=== PATIENT | female | born 1995 | race Caucasian/White ===

== ENCOUNTER 2019-09-03 21:51 | Emergency (ER) | payer OTHER, MEDICAID ==
[~2019-09-03] VITALS: Ht 162.6 cm; Wt 97.5 kg
[~2019-09-03 21:51] MED LIST: ESCI5TAB; RISP1TAB27
--- NOTE | 2019-09-03 22:30 | NUR ---
Patient triaged and placed in waiting room. VSS and patient appears in no acute distress at this time. Accompanied by SELF, awaiting available bed, and MD notified of need for MSE.
[2019-09-03 22:33] VITALS: BP_SYST 112
--- NOTE | 2019-09-04 01:33 | NUR ---
Patient to ER bed 3 to gown for evaluation. Side rails up. Report given to ALEJANDRO HAWKINS.
--- NOTE | 2019-09-04 01:59 | NUR ---
Dr. Ventura bedside for Pt eval
--- NOTE | 2019-09-04 02:05 | NUR ---
Pt BIB family to ED C/O sudden onset, constant dizziness and nausea since 1700 yesterday worse with postural changes, and alleviated upon staying still. She also reports of a 2 day history of left earache. Denies any fevers, chills, cough, other flu-like symptoms, chest pain, shortness of breath, vomiting, motor weakness, trouble speaking, trouble with gait. No known ill contacts or recent travel
[2019-09-04 02:20] LABS: BILIRUBIN,URINE NEGATIVE (NEGATIVE); BLOOD, URINE 3+ (NEGATIVE); CLARITY/URINE CLEAR (CLEAR); COLOR,URINE YELLOW (YELLOW); GLUCOSE,URINE NEGATIVE (NEGATIVE); KETONES,URINE NEGATIVE (NEGATIVE); LEUKOCYTE ESTERASE ,URINE 1+ (NEGATIVE); NITRITE, URINE NEGATIVE (NEGATIVE); PH,URINE 5.5 (5.0-8.0); PROTEIN URINE TRACE (NEGATIVE); UROBILINOGEN,URINE 0.2 (0.2-1.0)
[2019-09-04 02:26] LABS: BACTERIA,URINE FEW /HPF (None Seen); RBC,URINE 80-100 /HPF (0-3)
[2019-09-04 02:39] LABS: BASOPHILS % (AUTO) 0.3 % (0.0-2.0); EOSINOPHILS # (AUTO) 0.2 K/uL (0.0-0.4); EOSINOPHILS % (AUTO) 2.3 % (0.0-4.0); HEMATOCRIT 30.3 % (36-48); HEMOGLOBIN 9.8 g/dL (12.0-16.0); LYMPHOCYTES # (AUTO) 3.6 K/uL (1.0-5.5); LYMPHOCYTES % (AUTO) 46.9 % (20.5-51.5); MEAN CORPUSCULAR HEMOGLOBIN 24 pg (27-31); MEAN CORPUSCULAR HGB CONC 32 % (32-36); MEAN CORPUSCULAR VOLUME 74 fL (79.0-98.0); MONOCYTES # (AUTO) 0.5 K/uL (0.0-1.0); MONOCYTES % (AUTO) 6.4 % (1.7-9.3); NEUTROPHILS # (AUTO) 3.4 K/uL (1.8-7.7); NEUTROPHILS % (AUTO) 44.1 % (40.0-70.0); PLATELET COUNT (AUTO) 302 K/uL (130-430); RED BLOOD CELL COUNT(AUTO) 4.09 MIL/uL (4.2-6.2); RED CELL DISTRIBUTION WIDTH 17.7 % (9.0-15.0); WHITE BLOOD COUNT (AUTO) 7.6 K/uL (4.8-10.8)
[2019-09-04 02:42] LABS: CALCIUM 8.2 mg/dL (8.4-11.0); CREATININE 0.76 mg/dL (0.55-1.30); POTASSIUM 3.3 mmol/L (3.5-5.1)
[2019-09-04 03:00] LABS: ALBUMIN 3.6 g/dL (3.4-4.8); TOTAL BILIRUBIN 0.1 mg/dL (0.0-1.0)
--- NOTE | 2019-09-04 03:12 | NUR ---
VSS no s/s of acute distress Resting on gurney rails up
[2019-09-04] MEDS ORDERED: POTASSIUM CHLORIDE 20 MEQ TAB.PRT.SR PO ONE (04:00)
[2019-09-04 04:15] VITALS: BP_SYST 112
--- NOTE | 2019-09-04 04:15 | NUR ---
Patient given written and verbal discharge instructions and verbalizes understanding. ER MD discussed with patient the results and treatment provided. Patient in stable condition. ID arm band removed. Rx of Ofloxacin and Macrobid given. Patient educated on pain management and to follow up with PMD. Pain Scale 0/10 Opportunity for questions provided and answered. Medication side effect fact sheet provided.
== END 2019-09-04 04:15 | disposition home or self-care (01) ==
LOC: SED 21:51
DX: N39.0 Urinary tract infection, site not specified (principal); H60.92 Unspecified otitis externa, left ear; D64.9 Anemia, unspecified; E87.6 Hypokalemia; E11.9 Type 2 diabetes mellitus without complications; F41.9 Anxiety disorder, unspecified; E78.00 Pure hypercholesterolemia, unspecified
CPT/HCPCS: 36415; 80053; 81000-TC; 84702-TC; 85025; 87086; 99283

== ENCOUNTER 2020-05-03 20:16 | Inpatient (IN) | payer OTHER, MEDICAID, SELFPAY ==
[~2020-05-03] VITALS: Ht 162.6 cm; Wt 99.3 kg
[2020-05-03 20:16] VITALS: BP_SYST 119
[~2020-05-03 20:16] MED LIST changes: -ESCI5TAB; +ESCI5TAB PO; -RISP1TAB27; +RISP1TAB27 PO
[2020-05-03] MEDS ORDERED: NACL 0.9% 1,000 ML IV ONE ×2 (21:15→22:15)
[2020-05-03 21:27] LABS: BASOPHILS % (AUTO) 0.4 % (0.0-2.0); EOSINOPHILS % (AUTO) 0.6 % (0.0-4.0); HEMATOCRIT 30.7 % (36-48); LYMPHOCYTES # (AUTO) 2.7 K/uL (1.0-5.5); MEAN CORPUSCULAR HEMOGLOBIN 25 pg (27-31); MEAN CORPUSCULAR HGB CONC 33 % (32-36); MEAN CORPUSCULAR VOLUME 76 fL (79.0-98.0); MONOCYTES # (AUTO) 0.7 K/uL (0.0-1.0); NEUTROPHILS # (AUTO) 4.6 K/uL (1.8-7.7); PLATELET COUNT (AUTO) 261 K/uL (130-430); RED BLOOD CELL COUNT(AUTO) 4.07 MIL/uL (4.2-6.2); RED CELL DISTRIBUTION WIDTH 15.6 % (9.0-15.0); WHITE BLOOD COUNT (AUTO) 8.2 K/uL (4.8-10.8)
[2020-05-03 21:50] LABS: CALCIUM 8.3 mg/dL (8.4-11.0); CREATININE 0.78 mg/dL (0.55-1.30)
[2020-05-03 21:51] LABS: ALBUMIN 3.8 g/dL (3.4-4.8); TOTAL BILIRUBIN 0.1 mg/dL (0.0-1.0)
[2020-05-03 22:24] LABS: BILIRUBIN,URINE NEGATIVE (NEGATIVE); BLOOD, URINE NEGATIVE (NEGATIVE); CLARITY/URINE CLEAR (CLEAR); COLOR,URINE YELLOW (YELLOW); GLUCOSE,URINE 3+ (NEGATIVE); KETONES,URINE TRACE (NEGATIVE); LEUKOCYTE ESTERASE ,URINE NEGATIVE (NEGATIVE); NITRITE, URINE NEGATIVE (NEGATIVE); PH,URINE 7.5 (5.0-8.0); PROTEIN URINE NEGATIVE (NEGATIVE); UROBILINOGEN,URINE 0.2 (0.2-1.0)
[2020-05-03 22:31] LABS: BILIRUBIN,DIRECT 0.1 mg/dL (0.0-0.3)
[2020-05-03 23:00] LABS: BACTERIA,URINE RARE /HPF (None Seen); RBC,URINE NONE SEEN /HPF (0-3); WBC,URINE 0-3 /HPF (0-3)
[2020-05-03 23:01] LABS: MUCUS,URINE None Seen /LPF (None Seen)
[2020-05-04] MEDS ORDERED: PANTOPRAZOLE SODIUM 40 MG/VIAL (PROTONIX) IVP ONE (04:45)
[2020-05-04 08:30] VITALS: BP_SYST 118
[2020-05-04] MEDS ORDERED: ACETAMINOPHEN 325 MG TABLET PO PRN (08:45)
[2020-05-04] MEDS ORDERED: LORazepam 2 MG/ML VIAL IVP PRN (08:45)
[2020-05-04] MEDS ORDERED: HYDROcodone/ACETAMIN 10-325 MG TAB PO PRN (08:45)
[2020-05-04] MEDS ORDERED: ONDANSETRON HCL 4 MG/2 ML VIAL IVP PRN (08:45)
[2020-05-04] MEDS ORDERED: NALOXONE HCL 0.4 MG/ML AMP (NARCAN) IVP PRN (08:45)
[2020-05-04] MEDS ORDERED: PIOGLITAZONE HCL 30 MG TABLET PO SCH (09:00)
[2020-05-04] MEDS: PIOGLITAZONE HCL 15 MG TABLET PO SCH (09:47)
[2020-05-04] MEDS: CITALOPRAM HYDROBROMIDE 20 MG TABLET PO SCH (09:47)
[2020-05-04] MEDS: risperiDONE 1 MG TABLET (RisperDAL) PO SCH (09:47)
[2020-05-04 10:30] VITALS: BP_SYST 118
[2020-05-04] MEDS: NORMAL SALINE 5 ML DISP.SYRIN IVF SCH ×2 (11:17→20:52)
[2020-05-04] MEDS: INSULIN REGULAR, HUMAN 100 UNITS/ML, 10 ML VIAL (humuLIN R) SUBCUT PRN ×2 (11:18→17:51)
[2020-05-04 12:00] VITALS: BP_SYST 106
[2020-05-04] MEDS ORDERED: NORMAL SALINE 5 ML DISP.SYRIN IVF SCH (14:00)
[2020-05-04 16:54] VITALS: BP_SYST 97
[2020-05-04] MEDS: metFORMIN HCL 500 MG TABLET PO SCH (17:51)
[2020-05-04 20:00] VITALS: BP_SYST 131
[2020-05-05 00:52] VITALS: BP_SYST 111
[2020-05-05] MEDS: NORMAL SALINE 5 ML DISP.SYRIN IVF SCH ×2 (05:48→22:03)
[2020-05-05] MEDS: INSULIN REGULAR, HUMAN 100 UNITS/ML, 10 ML VIAL (humuLIN R) SUBCUT PRN ×3 (07:29→22:02)
[2020-05-05 07:49] LABS: BASOPHILS % (AUTO) 0.5 % (0.0-2.0); EOSINOPHILS # (AUTO) 0.1 K/uL (0.0-0.4); HEMATOCRIT 30.8 % (36-48); HEMOGLOBIN 10.1 g/dL (12.0-16.0); LYMPHOCYTES # (AUTO) 3.5 K/uL (1.0-5.5); LYMPHOCYTES % (AUTO) 40.7 % (20.5-51.5); MEAN CORPUSCULAR HEMOGLOBIN 25 pg (27-31); MEAN CORPUSCULAR HGB CONC 33 % (32-36); MEAN CORPUSCULAR VOLUME 75 fL (79.0-98.0); MONOCYTES # (AUTO) 0.6 K/uL (0.0-1.0); MONOCYTES % (AUTO) 6.9 % (1.7-9.3); NEUTROPHILS # (AUTO) 4.4 K/uL (1.8-7.7); NEUTROPHILS % (AUTO) 50.9 % (40.0-70.0); PLATELET COUNT (AUTO) 255 K/uL (130-430); RED BLOOD CELL COUNT(AUTO) 4.12 MIL/uL (4.2-6.2); RED CELL DISTRIBUTION WIDTH 15.9 % (9.0-15.0); WHITE BLOOD COUNT (AUTO) 8.6 K/uL (4.8-10.8)
[2020-05-05] MEDS ORDERED: GLU500 PO (08:04)
[2020-05-05] MEDS ORDERED: PIOG15TA8 PO (08:04)
[2020-05-05] MEDS ORDERED: ASPI-1393 PO (08:04)
[2020-05-05 08:07] LABS: ALBUMIN 3.4 g/dL (3.4-4.8); CALCIUM 8.2 mg/dL (8.4-11.0); CREATININE 0.79 mg/dL (0.55-1.30); PHOSPHORUS 4.5 mg/dL (2.7-4.5); POTASSIUM 3.8 mmol/L (3.5-5.1); TOTAL BILIRUBIN 0.3 mg/dL (0.0-1.0)
[2020-05-05 08:37] VITALS: BP_SYST 115
[2020-05-05] MEDS: metFORMIN HCL 500 MG TABLET PO SCH ×2 (08:58→16:57)
[2020-05-05] MEDS: PIOGLITAZONE HCL 15 MG TABLET PO SCH (08:58)
[2020-05-05] MEDS: risperiDONE 1 MG TABLET (RisperDAL) PO SCH (08:59)
[2020-05-05] MEDS: CITALOPRAM HYDROBROMIDE 20 MG TABLET PO SCH (08:59)
[2020-05-05 16:34] VITALS: BP_SYST 110
[2020-05-05 20:00] VITALS: BP_SYST 105
[2020-05-06] VITALS: BP_SYST 108
[2020-05-06 06:38] LABS: BASOPHILS # (AUTO) 0.1 K/uL (0.0-0.2); BASOPHILS % (AUTO) 0.6 % (0.0-2.0); EOSINOPHILS # (AUTO) 0.1 K/uL (0.0-0.4); EOSINOPHILS % (AUTO) 1.4 % (0.0-4.0); HEMATOCRIT 31.4 % (36-48); HEMOGLOBIN 10.4 g/dL (12.0-16.0); LYMPHOCYTES # (AUTO) 3.4 K/uL (1.0-5.5); LYMPHOCYTES % (AUTO) 38.4 % (20.5-51.5); MEAN CORPUSCULAR HEMOGLOBIN 25 pg (27-31); MEAN CORPUSCULAR HGB CONC 33 % (32-36); MEAN CORPUSCULAR VOLUME 75 fL (79.0-98.0); MONOCYTES # (AUTO) 0.7 K/uL (0.0-1.0); MONOCYTES % (AUTO) 7.4 % (1.7-9.3); NEUTROPHILS # (AUTO) 4.7 K/uL (1.8-7.7); NEUTROPHILS % (AUTO) 52.2 % (40.0-70.0); PLATELET COUNT (AUTO) 280 K/uL (130-430); RED BLOOD CELL COUNT(AUTO) 4.19 MIL/uL (4.2-6.2); RED CELL DISTRIBUTION WIDTH 15.6 % (9.0-15.0)
[2020-05-06] MEDS: NORMAL SALINE 5 ML DISP.SYRIN IVF SCH ×3 (06:50→21:14)
[2020-05-06] MEDS: INSULIN REGULAR, HUMAN 100 UNITS/ML, 10 ML VIAL (humuLIN R) SUBCUT PRN ×3 (06:52→18:09)
[2020-05-06 08:00] VITALS: BP_SYST 102
[2020-05-06] MEDS: metFORMIN HCL 500 MG TABLET PO SCH ×2 (08:20→18:05)
[2020-05-06] MEDS: PIOGLITAZONE HCL 15 MG TABLET PO SCH (08:21)
[2020-05-06] MEDS: risperiDONE 1 MG TABLET (RisperDAL) PO SCH (08:21)
[2020-05-06] MEDS: CITALOPRAM HYDROBROMIDE 20 MG TABLET PO SCH (08:21)
[2020-05-06 08:33] LABS: CALCIUM 8.3 mg/dL (8.4-11.0); CREATININE 0.99 mg/dL (0.55-1.30); POTASSIUM 3.4 mmol/L (3.5-5.1)
[2020-05-06] MEDS ORDERED: POTASSIUM CHLORIDE 20 MEQ TAB.PRT.SR PO ONE ×2 (12:15→14:30)
[2020-05-06 12:53] VITALS: BP_SYST 110
[2020-05-06 16:00] VITALS: BP_SYST 111
[2020-05-06] MEDS ORDERED: metFORMIN HCL 500 MG TABLET PO SCH (18:00)
[2020-05-06 20:00] VITALS: BP_SYST 122
[2020-05-07 00:08] VITALS: BP_SYST 117
[2020-05-07] MEDS: NORMAL SALINE 5 ML DISP.SYRIN IVF SCH ×3 (06:24→22:54)
[2020-05-07] MEDS: INSULIN REGULAR, HUMAN 100 UNITS/ML, 10 ML VIAL (humuLIN R) SUBCUT PRN ×2 (06:28→12:05)
[2020-05-07 07:15] LABS: BASOPHILS % (AUTO) 0.3 % (0.0-2.0); EOSINOPHILS # (AUTO) 0.1 K/uL (0.0-0.4); EOSINOPHILS % (AUTO) 1.5 % (0.0-4.0); HEMATOCRIT 31.7 % (36-48); HEMOGLOBIN 10.4 g/dL (12.0-16.0); LYMPHOCYTES # (AUTO) 3.4 K/uL (1.0-5.5); LYMPHOCYTES % (AUTO) 35.6 % (20.5-51.5); MEAN CORPUSCULAR HEMOGLOBIN 25 pg (27-31); MEAN CORPUSCULAR HGB CONC 33 % (32-36); MEAN CORPUSCULAR VOLUME 75 fL (79.0-98.0); MONOCYTES # (AUTO) 0.8 K/uL (0.0-1.0); MONOCYTES % (AUTO) 8.4 % (1.7-9.3); NEUTROPHILS # (AUTO) 5.3 K/uL (1.8-7.7); NEUTROPHILS % (AUTO) 54.2 % (40.0-70.0); PLATELET COUNT (AUTO) 281 K/uL (130-430); RED BLOOD CELL COUNT(AUTO) 4.22 MIL/uL (4.2-6.2); RED CELL DISTRIBUTION WIDTH 15.1 % (9.0-15.0); WHITE BLOOD COUNT (AUTO) 9.7 K/uL (4.8-10.8)
[2020-05-07 07:49] LABS: CALCIUM 8.8 mg/dL (8.4-11.0); CREATININE 0.69 mg/dL (0.55-1.30); POTASSIUM 3.6 mmol/L (3.5-5.1)
[2020-05-07 08:00] VITALS: BP_SYST 109
[2020-05-07] MEDS ORDERED: PIOGLITAZONE HCL 15 MG TABLET PO SCH (09:00)
[2020-05-07] MEDS: CITALOPRAM HYDROBROMIDE 20 MG TABLET PO SCH (09:30)
[2020-05-07] MEDS: PIOGLITAZONE HCL 15 MG TABLET PO SCH (09:30)
[2020-05-07] MEDS: metFORMIN HCL 500 MG TABLET PO SCH ×2 (09:31→17:09)
[2020-05-07] MEDS: ASPIRIN 81 MG TABLET(ECOTRIN) PO SCH (09:31)
[2020-05-07] MEDS: risperiDONE 1 MG TABLET (RisperDAL) PO SCH (09:31)
[2020-05-07 12:00] VITALS: BP_SYST 100
[2020-05-07 16:00] VITALS: BP_SYST 110
[2020-05-07 20:00] VITALS: BP_SYST 105
[2020-05-08] VITALS: BP_SYST 114
[2020-05-08] MEDS: INSULIN REGULAR, HUMAN 100 UNITS/ML, 10 ML VIAL (humuLIN R) SUBCUT PRN ×4 (00:23→23:47)
[2020-05-08 06:23] LABS: BASOPHILS % (AUTO) 0.5 % (0.0-2.0); EOSINOPHILS # (AUTO) 0.1 K/uL (0.0-0.4); EOSINOPHILS % (AUTO) 1.4 % (0.0-4.0); HEMATOCRIT 32.5 % (36-48); HEMOGLOBIN 10.8 g/dL (12.0-16.0); LYMPHOCYTES # (AUTO) 2.7 K/uL (1.0-5.5); LYMPHOCYTES % (AUTO) 37.8 % (20.5-51.5); MEAN CORPUSCULAR HEMOGLOBIN 25 pg (27-31); MEAN CORPUSCULAR HGB CONC 33 % (32-36); MEAN CORPUSCULAR VOLUME 75 fL (79.0-98.0); MONOCYTES # (AUTO) 0.7 K/uL (0.0-1.0); MONOCYTES % (AUTO) 9.5 % (1.7-9.3); NEUTROPHILS # (AUTO) 3.7 K/uL (1.8-7.7); NEUTROPHILS % (AUTO) 50.8 % (40.0-70.0); PLATELET COUNT (AUTO) 285 K/uL (130-430); RED BLOOD CELL COUNT(AUTO) 4.34 MIL/uL (4.2-6.2); RED CELL DISTRIBUTION WIDTH 15.5 % (9.0-15.0); WHITE BLOOD COUNT (AUTO) 7.2 K/uL (4.8-10.8)
[2020-05-08 07:03] LABS: ALBUMIN 3.9 g/dL (3.4-4.8); CREATININE 0.71 mg/dL (0.55-1.30); POTASSIUM 3.4 mmol/L (3.5-5.1); TOTAL BILIRUBIN 0.6 mg/dL (0.0-1.0)
[2020-05-08 08:00] VITALS: BP_SYST 113
[2020-05-08] MEDS: ASPIRIN 81 MG TABLET(ECOTRIN) PO SCH (09:57)
[2020-05-08] MEDS: PIOGLITAZONE HCL 15 MG TABLET PO SCH (09:57)
[2020-05-08] MEDS: CITALOPRAM HYDROBROMIDE 20 MG TABLET PO SCH (09:58)
[2020-05-08] MEDS: metFORMIN HCL 500 MG TABLET PO SCH ×2 (09:58→17:51)
[2020-05-08] MEDS: risperiDONE 1 MG TABLET (RisperDAL) PO SCH (09:58)
[2020-05-08] MEDS: NORMAL SALINE 5 ML DISP.SYRIN IVF SCH ×2 (14:00→20:59)
[2020-05-08 16:00] VITALS: BP_SYST 110
[2020-05-08 20:00] VITALS: BP_SYST 106
[2020-05-09] VITALS: BP_SYST 129
[2020-05-09 01:19] VITALS: BP_SYST 96
[2020-05-09] MEDS: NORMAL SALINE 5 ML DISP.SYRIN IVF SCH ×2 (06:03→14:00)
[2020-05-09] MEDS: INSULIN REGULAR, HUMAN 100 UNITS/ML, 10 ML VIAL (humuLIN R) SUBCUT PRN ×2 (06:09→11:52)
[2020-05-09 06:51] LABS: BASOPHILS % (AUTO) 0.6 % (0.0-2.0); EOSINOPHILS # (AUTO) 0.1 K/uL (0.0-0.4); EOSINOPHILS % (AUTO) 1.6 % (0.0-4.0); HEMATOCRIT 30.8 % (36-48); HEMOGLOBIN 10.2 g/dL (12.0-16.0); LYMPHOCYTES # (AUTO) 2.7 K/uL (1.0-5.5); LYMPHOCYTES % (AUTO) 39.8 % (20.5-51.5); MEAN CORPUSCULAR HEMOGLOBIN 25 pg (27-31); MEAN CORPUSCULAR HGB CONC 33 % (32-36); MEAN CORPUSCULAR VOLUME 75 fL (79.0-98.0); MONOCYTES # (AUTO) 0.7 K/uL (0.0-1.0); MONOCYTES % (AUTO) 9.5 % (1.7-9.3); NEUTROPHILS # (AUTO) 3.3 K/uL (1.8-7.7); NEUTROPHILS % (AUTO) 48.5 % (40.0-70.0); PLATELET COUNT (AUTO) 285 K/uL (130-430); RED BLOOD CELL COUNT(AUTO) 4.13 MIL/uL (4.2-6.2); RED CELL DISTRIBUTION WIDTH 15.8 % (9.0-15.0); WHITE BLOOD COUNT (AUTO) 6.9 K/uL (4.8-10.8)
[2020-05-09 07:40] LABS: CALCIUM 8.5 mg/dL (8.4-11.0); CREATININE 0.73 mg/dL (0.55-1.30); POTASSIUM 3.4 mmol/L (3.5-5.1)
[2020-05-09 08:00] VITALS: BP_SYST 119
[2020-05-09] MEDS: ASPIRIN 81 MG TABLET(ECOTRIN) PO SCH (08:32)
[2020-05-09] MEDS: risperiDONE 1 MG TABLET (RisperDAL) PO SCH (08:32)
[2020-05-09] MEDS: PIOGLITAZONE HCL 15 MG TABLET PO SCH (08:32)
[2020-05-09] MEDS: metFORMIN HCL 500 MG TABLET PO SCH (08:32)
[2020-05-09] MEDS: CITALOPRAM HYDROBROMIDE 20 MG TABLET PO SCH (08:33)
[2020-05-09 12:13] VITALS: BP_SYST 114
[2020-05-09 13:38] VITALS: BP_SYST 115
== END 2020-05-09 15:20 | disposition home or self-care (01) | DRG 74 ==
LOC: SED 20:16 → STU 05-04 00:59 → SMU 05-06 15:11
PROVIDERS: ADMIT Preventive Medicine Preventive Medicine/Occupational Environmental Medicine; ATTEND Preventive Medicine Preventive Medicine/Occupational Environmental Medicine
DX: G90.8 Other disorders of autonomic nervous system (principal); D64.9 Anemia, unspecified; E83.51 Hypocalcemia; F32.9 Major depressive disorder, single episode, unspecified; E87.6 Hypokalemia; E11.65 Type 2 diabetes mellitus with hyperglycemia; F41.9 Anxiety disorder, unspecified; E78.00 Pure hypercholesterolemia, unspecified; F79 Unspecified intellectual disabilities; Z20.822 Contact with and (suspected) exposure to COVID-19
CPT/HCPCS: 36415; 70450-TC; 70551; 76376; 80048; 80053; 80076; 81000-TC; 82962; 83735-TC; 84100-TC; 85025; 93306; 93880; 96361; 96374; 97110-GP; 97112-GP; 97116-GP; 97530-GP; 99285; C9113; G0378; J2060

== ENCOUNTER 2021-08-04 14:16 | Emergency (ER) | payer OTHER, MEDICAID ==
[~2021-08-04] VITALS: Ht 162.6 cm; Wt 108.9 kg
[~2021-08-04 14:16] MED LIST changes: +ASPI-1393 PO; +GLU500 PO; +PIOG15TA8 PO; -RISP1TAB27 PO; +RISP1TAB44 PO
--- NOTE | 2021-08-04 14:23 | NUR ---
Patient to ER bed 08 to gown for evaluation. Side rails up.
[2021-08-04 14:25] VITALS: BP_SYST 109
--- NOTE | 2021-08-04 14:30 | NUR ---
completed [facility] Breast Exam with Primary Nurse in room
--- NOTE | 2021-08-04 14:33 | NUR ---
ROSS Jaimes assumed cares of patient
--- NOTE | 2021-08-04 14:45 | NUR ---
Lab at bedside
--- NOTE | 2021-08-04 15:00 | NUR ---
MD at bedside discussing plan of care
[2021-08-04 15:03] LABS: BASOPHILS % (AUTO) 0.3 % (0.0-2.0); EOSINOPHILS # (AUTO) 0.1 K/uL (0.0-0.4); EOSINOPHILS % (AUTO) 0.9 % (0.0-4.0); HEMATOCRIT 28.3 % (36-48); HEMOGLOBIN 9.2 g/dL (12.0-16.0); LYMPHOCYTES # (AUTO) 1.2 K/uL (1.0-5.5); LYMPHOCYTES % (AUTO) 18.7 % (20.5-51.5); MEAN CORPUSCULAR HEMOGLOBIN 23 pg (27-31); MEAN CORPUSCULAR HGB CONC 33 % (32-36); MEAN CORPUSCULAR VOLUME 72 fL (79.0-98.0); MONOCYTES # (AUTO) 0.5 K/uL (0.0-1.0); MONOCYTES % (AUTO) 7.5 % (1.7-9.3); NEUTROPHILS # (AUTO) 4.8 K/uL (1.8-7.7); NEUTROPHILS % (AUTO) 72.6 % (40.0-70.0); PLATELET COUNT (AUTO) 292 K/uL (130-430); RED BLOOD CELL COUNT(AUTO) 3.95 MIL/uL (4.2-6.2); RED CELL DISTRIBUTION WIDTH 18.6 % (9.0-15.0); WHITE BLOOD COUNT (AUTO) 6.6 K/uL (4.8-10.8)
[2021-08-04 15:19] LABS: ALBUMIN 3.4 g/dL (3.4-4.8); C-REACTIVE PROTEIN QUANT 2.8 mg/dL (0-0.5); CALCIUM 8.3 mg/dL (8.4-11.0); CREATININE 0.77 mg/dL (0.55-1.30); POTASSIUM 3.6 mmol/L (3.5-5.1); TOTAL BILIRUBIN 0.3 mg/dL (0.0-1.0)
[2021-08-04] MEDS ORDERED: CLIN-22 PO (15:23)
[2021-08-04] MEDS ORDERED: HYDR-3917 PO (15:24)
--- NOTE | 2021-08-04 15:29 | NUR ---
Patient given written and verbal discharge instructions and verbalizes understanding. ER MD discussed with patient the results and treatment provided. Patient in stable condition. ID arm band removed. Rx of given. Patient educated on pain management and to follow up with PMD. Pain Scale 0/10 Opportunity for questions provided and answered. Medication side effect fact sheet provided.
[2021-08-04 15:30] VITALS: BP_SYST 114
== END 2021-08-04 15:29 | disposition home or self-care (01) ==
LOC: SED 14:16
DX: N61.0 Mastitis without abscess (principal); E11.9 Type 2 diabetes mellitus without complications; F41.9 Anxiety disorder, unspecified; E78.00 Pure hypercholesterolemia, unspecified; Z79.899 Other long term (current) drug therapy
CPT/HCPCS: 36415; 80053; 83605; 84703; 85025; 86140; 99283

== ENCOUNTER 2021-10-24 11:15 | Emergency (ER) | payer OTHER, MEDICAID ==
[~2021-10-24] VITALS: Ht 162.6 cm; Wt 99.8 kg
[~2021-10-24 11:15] MED LIST changes: +CLIN-22 PO; +HYDR-3917 PO
[2021-10-24 11:19] VITALS: BP_SYST 132
--- NOTE | 2021-10-24 11:22 | NUR ---
Patient to ER bed 04 to gown for evaluation. Side rails up.
[2021-10-24] MEDS ORDERED: ALPRAZolam 0.25 MG TABLET PO ONE (11:30)
--- NOTE | 2021-10-24 11:30 | NUR ---
Pt coming from home ambulatory with steady gait accompanied by mother. Pt is A&Ox4. pt c/o feeling left arm pain 5/10 non-radiating and is constant. Pt also c/o seeing illusions that started 2 days ago as well as arm pain. Pt states this has happened before in the past. NKA. Has hx of DM, depression, Anxiety, and Hyperlipidemia. VSS. Bed in lowest position.
--- NOTE | 2021-10-24 11:35 | NUR ---
EKG performed at by Nadya HAWKINS. Physician given copy of EKG for review.
--- NOTE | 2021-10-24 11:45 | NUR ---
urine completed and results were negative.
--- NOTE | 2021-10-24 11:50 | NUR ---
ER at bedside examining patient.
--- NOTE | 2021-10-24 11:58 | NUR ---
X-Ray being done at bedside.
[2021-10-24] MEDS ORDERED: ALPR0.5T PO (12:38)
[2021-10-24 12:46] VITALS: BP_SYST 128
--- NOTE | 2021-10-24 12:51 | NUR ---
Patient given written and verbal discharge instructions and verbalizes understanding. ER MD discussed with patient the results and treatment provided. Patient in stable condition. ID arm band removed. Patient educated on pain management and to follow up with PMD. Pain Scale 0/10. Opportunity for questions provided and answered. Medication side effect fact sheet provided.
== END 2021-10-24 12:51 | disposition home or self-care (01) ==
LOC: SED 11:15
DX: F41.9 Anxiety disorder, unspecified (principal); M79.602 Pain in left arm; E11.9 Type 2 diabetes mellitus without complications; Z79.899 Other long term (current) drug therapy
CPT/HCPCS: 71045; 81025; 93005; 99283

== ENCOUNTER 2021-10-29 01:03 | Emergency (ER) | payer OTHER, MEDICAID ==
[~2021-10-29] VITALS: Ht 162.6 cm; Wt 104.3 kg
[~2021-10-29 01:03] MED LIST changes: +ALPR0.5T PO
[2021-10-29 01:28] VITALS: BP_SYST 117
--- NOTE | 2021-10-29 01:43 | NUR ---
Patient brought in with mother complaining of left hand flopping after taking 0.5 mg of Xanax tonight. Mother also reports patient is seeing things. Mother reports that this is different than how she normally presents for anxiety. Patient has history of anxiety and depression as well as diabetes. Patient denies any pain at this time vital signs are stable. Patient awaiting bed placement MD notified.
[2021-10-29] MEDS ORDERED: LORazepam 1 MG TABLET PO ONE (04:00)
--- NOTE | 2021-10-29 04:00 | NUR ---
BORIS Verduzco at bedside examining patient.
--- NOTE | 2021-10-29 04:58 | NUR ---
Urine HCG done, results NEGATIVE
[2021-10-29] MEDS ORDERED: DIAZ5TAB PO (06:33)
[2021-10-29 06:50] VITALS: BP_SYST 121
--- NOTE | 2021-10-29 06:50 | NUR ---
Patient given written and verbal discharge instructions and verbalizes understanding. ER MD discussed with patient the results and treatment provided. Patient in stable condition. ID arm band removed. Rx of Diazepam given. Patient educated on pain management and to follow up with PMD. Pain Scale 0/10. Opportunity for questions provided and answered. Medication side effect fact sheet provided.
== END 2021-10-29 06:50 | disposition home or self-care (01) ==
LOC: SED 01:03
DX: F41.1 Generalized anxiety disorder (principal); E11.9 Type 2 diabetes mellitus without complications; F41.0 Panic disorder [episodic paroxysmal anxiety]; Z79.899 Other long term (current) drug therapy; R51.9 Headache, unspecified
CPT/HCPCS: 36415; 70450-TC; 76376; 81025; 84443; 99284

== ENCOUNTER 2021-11-23 16:59 | Emergency (ER) | payer OTHER, MEDICAID ==
[~2021-11-23] VITALS: Ht 162.6 cm; Wt 106.1 kg
[~2021-11-23 16:59] MED LIST changes: +DIAZ5TAB PO
[2021-11-23 17:19] VITALS: BP_SYST 103
[2021-11-23 23:52] LABS: BILIRUBIN,URINE NEGATIVE (NEGATIVE); CLARITY/URINE SL CLOUDY (CLEAR); COLOR,URINE YELLOW (YELLOW); GLUCOSE,URINE NEGATIVE (NEGATIVE); KETONES,URINE TRACE (NEGATIVE); LEUKOCYTE ESTERASE ,URINE NEGATIVE (NEGATIVE); NITRITE, URINE NEGATIVE (NEGATIVE); PH,URINE 5.5 (5.0-8.0); PROTEIN URINE NEGATIVE (NEGATIVE); UROBILINOGEN,URINE 0.2 (0.2-1.0)
[2021-11-24 00:02] LABS: BLOOD, URINE TRACE (NEGATIVE)
[2021-11-24 00:09] LABS: BASOPHILS % (AUTO) 0.6 % (0.0-2.0); EOSINOPHILS # (AUTO) 0.1 K/uL (0.0-0.4); HEMATOCRIT 30.9 % (36-48); HEMOGLOBIN 10.1 g/dL (12.0-16.0); MEAN CORPUSCULAR HEMOGLOBIN 24 pg (27-31); MEAN CORPUSCULAR HGB CONC 33 % (32-36); MEAN CORPUSCULAR VOLUME 72 fL (79.0-98.0); MONOCYTES # (AUTO) 0.4 K/uL (0.0-1.0); MONOCYTES % (AUTO) 7.3 % (1.7-9.3); NEUTROPHILS # (AUTO) 3.1 K/uL (1.8-7.7); NEUTROPHILS % (AUTO) 54.1 % (40.0-70.0); PLATELET COUNT (AUTO) 289 K/uL (130-430); RED BLOOD CELL COUNT(AUTO) 4.28 MIL/uL (4.2-6.2); RED CELL DISTRIBUTION WIDTH 16.7 % (9.0-15.0); WHITE BLOOD COUNT (AUTO) 5.7 K/uL (4.8-10.8)
[2021-11-24 00:12] LABS: CALCIUM 8.6 mg/dL (8.4-11.0); CREATININE 0.75 mg/dL (0.55-1.30); POTASSIUM 3.9 mmol/L (3.5-5.1)
[2021-11-24 00:17] LABS: ALBUMIN 3.4 g/dL (3.4-4.8); TOTAL BILIRUBIN 0.2 mg/dL (0.0-1.0)
[2021-11-24 01:33] LABS: BACTERIA,URINE FEW /HPF (None Seen)
[2021-11-24 01:34] LABS: MUCUS,URINE 1+ /LPF (None Seen)
[2021-11-24 03:42] VITALS: BP_SYST 106
== END 2021-11-24 03:43 | disposition home or self-care (01) ==
LOC: SED 16:59
DX: E11.65 Type 2 diabetes mellitus with hyperglycemia (principal); R73.9 Hyperglycemia, unspecified; E86.0 Dehydration; R42 Dizziness and giddiness; R53.1 Weakness; Z79.899 Other long term (current) drug therapy; Z20.822 Contact with and (suspected) exposure to COVID-19
CPT/HCPCS: 36415; 80053; 81000; 82962; 85025; 87086; 99283; 99285

== ENCOUNTER 2022-01-05 13:59 | Emergency (ER) | payer OTHER, MEDICAID ==
[~2022-01-05] VITALS: Ht 162.6 cm; Wt 104.3 kg
[2022-01-05 14:08] VITALS: BP_SYST 119
--- NOTE | 2022-01-05 14:15 | NUR ---
BIB B[facility]ET [facility] WITH C/C OF RIGHT LATERAL BREAST PAIN FROM PREVIOUS DX OF MASTITIS. PT FINISHED A FULL COURSE OF ANTIBIOTICS 2 WEEKS AGO. 3 WEEKS AGO PT HAD REDNESS AND SWELLING TO RIGHT BREAST AND GIVEN ANTIBIOTICS. TODAY PT WOKE UP WITH RIGHT BREAST PAIN. PT WITH MENTAL DISABILITY AND HAS 24 HOUR CAREGIVER. WITH CAREGIVER UCHE IN TRIAGE ROOM, RIGHT BREAST ASSESSSED WITH NO REDNESS OR SWELLING. PT DID HAVE SORENESS TO PALPATION OF RIGHT UPPER LATERAL BREAST. NO LUMPS OR HARNESS FELT. BASKET MAKER UCHE REPORTED LAST NIGHT PT WITH CHILLS, TYLENOL GIVEN AT 1999. AFEBRILE TODAY IN ED.
--- NOTE | 2022-01-05 14:47 | NUR ---
DR. SOLITARIO ASSESSED PT IN TRIAGE ROOM.
[2022-01-05 15:23] LABS: BASOPHILS % (AUTO) 0.5 % (0.0-2.0); EOSINOPHILS # (AUTO) 0.1 K/uL (0.0-0.4); EOSINOPHILS % (AUTO) 1.2 % (0.0-4.0); HEMATOCRIT 33.3 % (36-48); LYMPHOCYTES # (AUTO) 2.2 K/uL (1.0-5.5); LYMPHOCYTES % (AUTO) 30.3 % (20.5-51.5); MEAN CORPUSCULAR VOLUME 71 fL (79.0-98.0); MONOCYTES # (AUTO) 0.5 K/uL (0.0-1.0); MONOCYTES % (AUTO) 7.6 % (1.7-9.3); NEUTROPHILS # (AUTO) 4.3 K/uL (1.8-7.7); NEUTROPHILS % (AUTO) 60.4 % (40.0-70.0); PLATELET COUNT (AUTO) 287 K/uL (130-430); RED BLOOD CELL COUNT(AUTO) 4.66 MIL/uL (4.2-6.2); RED CELL DISTRIBUTION WIDTH 16.8 % (9.0-15.0); WHITE BLOOD COUNT (AUTO) 7.2 K/uL (4.8-10.8)
[2022-01-05 16:02] LABS: ANION GAP 8 (5-15); CALCIUM 9.4 mg/dL (8.4-11.0); CHLORIDE 100 mmol/L (98-107); CREATININE 0.82 mg/dL (0.55-1.30); GLUCOSE 287 mg/dL (70-99); POTASSIUM 4.4 mmol/L (3.5-5.1); SODIUM SERUM 135 mmol/L (136-145); UREA NITROGEN, BLOOD 7 mg/dL (8-21)
[2022-01-05 16:08] LABS: ALANINE AMINOTRANSFERASE 30 U/L (12-78); ALBUMIN 3.9 g/dL (3.4-4.8); ASPARTATE AMINOTRANSFERASE 18 U/L (10-37); TOTAL BILIRUBIN 0.6 mg/dL (0.0-1.0)
[2022-01-05 16:16] LABS: C-REACTIVE PROTEIN QUANT < 0.2 mg/dL (0-0.5); GFR AFRICAN AMERICAN 107 mL/min (>90)
[2022-01-05] MEDS ORDERED: IBUP-1969 PO (16:43)
--- NOTE | 2022-01-05 17:36 | NUR ---
PT CLEARED FOR DC BY DR. SOLITARIO. NAD NOTED. DENIES ANY PAIN AT THIS TIME. PT TO FOLLOW UP WITH HER PMD ON FRIDAY. PT ALREADY HAS AN APPOINTMENT. PT AMBULATED OUT OF ED IN STABLE CONDITION.
== END 2022-01-05 17:36 | disposition home or self-care (01) ==
LOC: SED 13:59
DX: R68.83 Chills (without fever) (principal); N64.4 Mastodynia; E11.9 Type 2 diabetes mellitus without complications; Z79.899 Other long term (current) drug therapy
CPT/HCPCS: 36415; 71045; 80053; 83605; 85025; 86140; 99284

== ENCOUNTER 2022-02-02 19:56 | Emergency (ER) | payer OTHER, MEDICAID ==
[~2022-02-02] VITALS: Ht 162.6 cm; Wt 104.3 kg
[~2022-02-02 19:56] MED LIST changes: +IBUP-1969 PO
[2022-02-02 20:17] VITALS: BP_SYST 132
--- NOTE | 2022-02-02 20:25 | NUR ---
Pt brought by mother, A&Ox4, pt presents to ER with abdominal pain, N/V/D x 3 days, per mother pt has Hx of diabetes, BS 257 at this time, skin pink and warm, cap refill <3, VSS, respirations even and unlabored, will cont to monitor.
[2022-02-02 21:45] LABS: BILIRUBIN,URINE 1+ (NEGATIVE); BLOOD, URINE NEGATIVE (NEGATIVE); CLARITY/URINE CLEAR (CLEAR); COLOR,URINE YELLOW (YELLOW); GLUCOSE,URINE 2+ (NEGATIVE); KETONES,URINE 1+ (NEGATIVE); LEUKOCYTE ESTERASE ,URINE NEGATIVE (NEGATIVE); NITRITE, URINE NEGATIVE (NEGATIVE); PROTEIN URINE TRACE (NEGATIVE); UROBILINOGEN,URINE 0.2 (0.2-1.0)
[2022-02-02 21:59] LABS: BACTERIA,URINE None Seen /HPF (None Seen); MUCUS,URINE 2+ /LPF (None Seen); RBC,URINE NONE SEEN /HPF (0-3); WBC,URINE NONE SEEN /HPF (0-3)
--- NOTE | 2022-02-02 22:27 | NUR ---
Patient to ER bed 03 to gown for evaluation. Side rails up. Report given to Laura HAWKINS.
[2022-02-02 22:46] LABS: BASOPHILS % (AUTO) 0.4 % (0.0-2.0); EOSINOPHILS # (AUTO) 0.1 K/uL (0.0-0.4); EOSINOPHILS % (AUTO) 1.6 % (0.0-4.0); HEMATOCRIT 33.7 % (36-48); LYMPHOCYTES # (AUTO) 2.5 K/uL (1.0-5.5); LYMPHOCYTES % (AUTO) 32.9 % (20.5-51.5); MEAN CORPUSCULAR HEMOGLOBIN 23 pg (27-31); MEAN CORPUSCULAR HGB CONC 33 % (32-36); MEAN CORPUSCULAR VOLUME 72 fL (79.0-98.0); MONOCYTES # (AUTO) 0.5 K/uL (0.0-1.0); MONOCYTES % (AUTO) 6.8 % (1.7-9.3); NEUTROPHILS # (AUTO) 4.4 K/uL (1.8-7.7); NEUTROPHILS % (AUTO) 58.3 % (40.0-70.0); PLATELET COUNT (AUTO) 294 K/uL (130-430); RED CELL DISTRIBUTION WIDTH 16.4 % (9.0-15.0); WHITE BLOOD COUNT (AUTO) 7.6 K/uL (4.8-10.8)
[2022-02-02] MEDS ORDERED: LORazepam 2 MG/ML VIAL IVP ONE (23:00)
[2022-02-02 23:28] LABS: CREATININE 0.91 mg/dL (0.55-1.30); POTASSIUM 3.8 mmol/L (3.5-5.1)
[2022-02-02 23:35] LABS: TOTAL BILIRUBIN 0.2 mg/dL (0.0-1.0)
[2022-02-03] MEDS ORDERED: ONDANSETRON HCL 4 MG/2 ML VIAL IVP ONE
[2022-02-03] MEDS ORDERED: NACL 0.9% 1,000 ML IV ONE
[2022-02-03] MEDS ORDERED: ONDA-8 TL (00:56)
--- NOTE | 2022-02-03 01:10 | NUR ---
NS 1L started at 0010hrs and ended at 0110 hrs
[2022-02-03 03:25] VITALS: BP_SYST 106
== END 2022-02-03 02:10 | disposition home or self-care (01) ==
LOC: SED 19:56
DX: R10.9 Unspecified abdominal pain (principal); R19.7 Diarrhea, unspecified; R11.0 Nausea; E11.9 Type 2 diabetes mellitus without complications; Z79.899 Other long term (current) drug therapy
CPT/HCPCS: 99284; 96374; 80053; 81000; 83690; 85025; 36415; 81025; 96361; 96375; J2060; J2405; J7030

== ENCOUNTER → 2023-04-13 | Emergency (ER) | payer OTHER, MEDICAID ==
[~2023-04-13] VITALS: Ht 165.1 cm; Wt 90.7 kg
[~2023-04-13] MED LIST changes: +FERR-69 PO; +NITR-85 PO; +ONDA-8 TL
[2023-04-13 18:13] VITALS: BP_SYST 127; PULSE 96; RESP 19; TEMP 97.4; O2SAT 98
[2023-04-13 19:07] LABS: BILIRUBIN,URINE NEGATIVE (NEGATIVE); BLOOD, URINE 3+ (NEGATIVE); COLOR,URINE YELLOW (YELLOW); GLUCOSE,URINE NEGATIVE (NEGATIVE); KETONES,URINE TRACE (NEGATIVE); LEUKOCYTE ESTERASE ,URINE NEGATIVE (NEGATIVE); NITRITE, URINE NEGATIVE (NEGATIVE); PROTEIN URINE TRACE (NEGATIVE)
[2023-04-13 19:28] LABS: CLARITY/URINE HAZY (CLEAR)
[2023-04-13 19:29] LABS: BACTERIA,URINE FEW /HPF (None Seen); RBC,URINE 50-80 /HPF (0-3)
[2023-04-13 19:30] LABS: CALCIUM OXALATE CRYSTALS,UR 0-10 /HPF (None Seen); MUCUS,URINE 2+ /LPF (None Seen)
[2023-04-13 21:35] LABS: BASOPHILS % (AUTO) 0.6 % (0.0-2.0); EOSINOPHILS # (AUTO) 0.2 K/uL (0.0-0.4); EOSINOPHILS % (AUTO) 2.7 % (0.0-4.0); HEMATOCRIT 37.2 % (36-48); HEMOGLOBIN 11.8 g/dL (12.0-16.0); LYMPHOCYTES # (AUTO) 2.3 K/uL (1.0-5.5); LYMPHOCYTES % (AUTO) 40.9 % (20.5-51.5); MEAN CORPUSCULAR HEMOGLOBIN 28 pg (27-31); MEAN CORPUSCULAR HGB CONC 32 % (32-36); MEAN CORPUSCULAR VOLUME 89 fL (79.0-98.0); MONOCYTES # (AUTO) 0.4 K/uL (0.0-1.0); MONOCYTES % (AUTO) 6.6 % (1.7-9.3); NEUTROPHILS # (AUTO) 2.8 K/uL (1.8-7.7); NEUTROPHILS % (AUTO) 49.2 % (40.0-70.0); PLATELET COUNT (AUTO) 316 K/uL (130-430); RED BLOOD CELL COUNT(AUTO) 4.18 MIL/uL (4.2-6.2); RED CELL DISTRIBUTION WIDTH 13.2 % (9.0-15.0); WHITE BLOOD COUNT (AUTO) 5.7 K/uL (4.8-10.8)
[2023-04-13 21:46] LABS: CALCIUM 8.1 mg/dL (8.4-11.0); CREATININE 0.72 mg/dL (0.55-1.30); POTASSIUM 3.6 mmol/L (3.5-5.1)
[2023-04-13 21:47] LABS: PROTHROMBIN TIME 9.9 SECS (9.5-12.5)
== END | disposition home or self-care (01) ==
LOC: SED 17:28
DX: N93.9 Abnormal uterine and vaginal bleeding, unspecified (principal); N39.0 Urinary tract infection, site not specified; R42 Dizziness and giddiness; E11.9 Type 2 diabetes mellitus without complications; Z79.899 Other long term (current) drug therapy
CPT/HCPCS: 36415; 76856-TC; 80048; 81000; 81001; 81015; 85025; 85610-TC; 86886; 86900; 86901; 99284

== ENCOUNTER 2023-07-31 22:23 | Emergency (ER) | payer OTHER, MEDICAID ==
[~2023-07-31] VITALS: Ht 162.6 cm; Wt 86.2 kg
[2023-07-31 22:31] VITALS: BP_SYST 125; PULSE 93; RESP 22; TEMP 97.3; O2SAT 99
[2023-07-31] MEDS: NS 1000 ML IV.SOLN IV ONE (23:27)
[2023-07-31] MEDS: ONDANSETRON HCL 4 MG/2 ML VIAL IVP ONE (23:27)
[2023-07-31 23:32] LABS: BASOPHILS % (AUTO) 0.3 % (0.0-2.0); EOSINOPHILS # (AUTO) 0.1 K/uL (0.0-0.4); EOSINOPHILS % (AUTO) 1.3 % (0.0-4.0); HEMOGLOBIN 12.6 g/dL (12.0-16.0); LYMPHOCYTES # (AUTO) 1.9 K/uL (1.0-5.5); LYMPHOCYTES % (AUTO) 25.2 % (20.5-51.5); MEAN CORPUSCULAR HEMOGLOBIN 28 pg (27-31); MEAN CORPUSCULAR HGB CONC 34 % (32-36); MEAN CORPUSCULAR VOLUME 83 fL (79.0-98.0); MONOCYTES # (AUTO) 0.5 K/uL (0.0-1.0); MONOCYTES % (AUTO) 6.7 % (1.7-9.3); NEUTROPHILS % (AUTO) 66.5 % (40.0-70.0); PLATELET COUNT (AUTO) 271 K/uL (130-430); RED BLOOD CELL COUNT(AUTO) 4.48 MIL/uL (4.2-6.2); RED CELL DISTRIBUTION WIDTH 13.6 % (9.0-15.0); WHITE BLOOD COUNT (AUTO) 7.5 K/uL (4.8-10.8)
[2023-07-31 23:35] LABS: BILIRUBIN,URINE NEGATIVE (NEGATIVE); BLOOD, URINE NEGATIVE (NEGATIVE); CLARITY/URINE CLEAR (CLEAR); COLOR,URINE YELLOW (YELLOW); GLUCOSE,URINE 3+ (NEGATIVE); KETONES,URINE NEGATIVE (NEGATIVE); LEUKOCYTE ESTERASE ,URINE NEGATIVE (NEGATIVE); NITRITE, URINE NEGATIVE (NEGATIVE); PROTEIN URINE NEGATIVE (NEGATIVE); UROBILINOGEN,URINE 0.2 (0.2-1.0)
[2023-07-31 23:51] LABS: ALANINE AMINOTRANSFERASE 26 U/L (12-78); ALBUMIN 3.9 g/dL (3.4-4.8); ANION GAP 10 (5-15); ASPARTATE AMINOTRANSFERASE 17 U/L (10-37); BILIRUBIN,DIRECT 0.1 mg/dL (0.0-0.3); CALCIUM 8.9 mg/dL (8.4-11.0); CARBON DIOXIDE 23 mmol/L (23-29); CHLORIDE 108 mmol/L (98-107); CREATININE 1.06 mg/dL (0.55-1.30); GFR AFRICAN AMERICAN 78 mL/min (>90); GLUCOSE 212 mg/dL (74-106); POTASSIUM 3.7 mmol/L (3.5-5.1); SODIUM SERUM 141 mmol/L (136-145); TOTAL BILIRUBIN 0.5 mg/dL (0.0-1.0); TOTAL PROTEIN, SERUM 7.5 g/dL (6.4-8.3); UREA NITROGEN, BLOOD 9 mg/dL (8-21)
[2023-07-31 23:56] LABS: BACTERIA,URINE RARE /HPF (None Seen); RBC,URINE 0-3 /HPF (0-3); WBC,URINE 0-3 /HPF (0-3)
[2023-07-31 23:58] LABS: GFR NON AFRICAN-AMERICAN 65 mL/min (>90)
[2023-08-01 00:24] LABS: ACETONE, SERUM NEGATIVE (NEGATIVE)
[2023-08-01] MEDS: LORazepam 1 MG TABLET PO ONE (02:26)
[2023-08-01] MEDS ORDERED: ONDA-8 TL (03:58)
[2023-08-01 04:14] VITALS: BP_SYST 115; PULSE 93; RESP 22; TEMP 97.3; O2SAT 99
== END 2023-08-01 04:14 | disposition home or self-care (01) ==
LOC: SED 22:23
DX: K29.00 Acute gastritis without bleeding (principal); F32.9 Major depressive disorder, single episode, unspecified; E11.9 Type 2 diabetes mellitus without complications; F41.9 Anxiety disorder, unspecified; Z79.899 Other long term (current) drug therapy
CPT/HCPCS: 99285; 96374; 96361; 80076; 80048; 81000; 81001; 82009; 85025; 87040; 87086; 36415; 83605; 74176; 81015; J2405; J7030